=== PATIENT | male | born 1960 | race Caucasian/White ===

== ENCOUNTER 2021-02-13 20:22 | Outpatient (CLI) | payer OTHER | END 2021-02-13 20:23 | disposition critical access hospital (66) | LOC: EMS 20:22 | DX: R10.9 Unspecified abdominal pain (principal); R55 Syncope and collapse | CPT/HCPCS: A0425; A0427 ==

== ENCOUNTER 2021-02-13 21:01 | Emergency (ER) | payer OTHER ==
[2021-02-13] MEDS ORDERED: SODIUM CHLORIDE 0.9% 1,000 ML IV STA (21:25)
[2021-02-13] MEDS ORDERED: ASPIRIN CHEW 81 MG TABLET PO STA (21:25)
[2021-02-13 21:43] LABS: BASOPHILS # (AUTO) 0.1 10^3/uL (0.0-0.1); EOSINOPHILS # (AUTO) 0.1 10^3/uL (0.0-0.7); EOSINOPHILS % (AUTO) 1.2 %; HCT - HEMATOCRIT 37.2 % (42.0-52.0); HGB - HEMOGLOBIN 12.5 g/dL (14.0-18.0); LYMPHOCYTES # (AUTO) 1.5 10^3/uL (1.5-3.5); LYMPHOCYTES % (AUTO) 15.4 %; MEAN CORPUSCULAR HEMOGLOBIN 28.7 pg (27.0-31.0); MEAN CORPUSCULAR HGB CONC 33.6 g/dL (32.0-36.0); MEAN CORPUSCULAR VOLUME 85.5 fL (80.0-94.0); MEAN PLATELET VOLUME 9.5 fL (7.4-11.4); MONOCYTES # (AUTO) 0.7 10^3/uL (0.0-1.0); MONOCYTES % (AUTO) 6.9 %; NEUTROPHILS # (AUTO) 7.5 10^3/uL (1.5-6.6); NEUTROPHILS % (AUTO) 75.2 %; PLT - PLATELET COUNT 201 10^3/uL (130-450); RED BLOOD COUNT 4.35 10^6/uL (4.70-6.10); RED CELL DISTRIBUTION WIDTH 13.1 % (12.0-15.0); WHITE BLOOD COUNT 9.9 x10^3/uL (4.8-10.8)
--- NOTE | 2021-02-13 21:52 | ED Physician Documentation ---
PD HPI ABD PAIN - Stated complaint Stated Complaint: ABD PX - Chief complaint Chief Complaint: Abd Pain - History obtained from History obtained from: Patient - Additional information Additional information: 60yM, nonsmoker, with pmd htn, hld, p/w abd pain in LLQ, crampiing and sudden onset, moderate severity this evening a/w urge to defecate. patient then tried to go to bathroom but believes he passed out. he was incontinent of urine and stool during this episode. no tongue biting. on arrival to hospital denies nausea, fever, or feeling ill earlier in the day. denies cp, soa, dizziness. Review of Systems Ten Systems: 10 systems reviewed and negative Constitutional: denies: Fever, Chills Cardiac: denies: Chest pain / pressure Respiratory: denies: Dyspnea GI: reports: Abdominal Pain. denies: Nausea, Vomiting Neurologic: reports: Syncope PD PAST MEDICAL HISTORY - Present Medications Home Medications: Ambulatory Orders Medication Instructions Recorded Confirmed Lisinopril [Zestril] 02/13/21 Metoprolol Succinate [Kapspargo 02/13/21 Sprinkle] buPROPion [Wellbutrin Xl] 02/13/21 - Allergies Allergies/Adverse Reactions: Allergies Allergy/AdvReac Type Severity Reaction Status Date / Time No Known Drug Allergies Allergy Verified 02/13/21 21:08 PD ED PE NORMAL - Vitals Vital signs reviewed: Yes - General General: Alert and oriented X 3, No acute distress, Well developed/nourished - HEENT HEENT: Atraumatic, PERRL, EOMI - Neck Neck: Supple, no meningeal sign - Cardiac Cardiac: RRR - Respiratory Respiratory: No respiratory distress, Clear bilaterally - Abdomen Abdomen: Non tender, Non distended - Derm Derm: Normal color, Warm and dry - Extremities Extremities: No deformity - Neuro Neuro: Alert and oriented X 3, marble setter 2-12 intact, No motor deficit, No sensory deficit, Normal speech - Psych Psych: Normal mood, Normal affect Results - Vitals Vitals: Vital Signs - 24 hr 02/13/21 02/13/21 02/14/21 21:04 23:00 00:33 Temperature 36.7 C 36.9 C Heart Rate 52 L 76 64 Respiratory 18 12 13 Rate Blood Pressure 112/54 L 131/86 H 134/81 H O2 Saturation 96 98 98 Oxygen O2 Source Room air - EKG (time done) 6 Rate: Rate (enter#) (63) Rhythm: NSR [place]: Normal Intervals: Normal [place] QRS: Normal Ischemia: Normal ST segments 2256 Rate: Rate (enter#) (72) Rhythm: NSR [place]: Normal Intervals: Normal [place], Other (QRS 112) Ischemia: Normal ST segments, Other (no changes from prior) - Labs Labs: Laboratory Tests 02/13/21 02/13/21 02/13/21 21:32 21:32 21:32 WBC 9.9 RBC 4.35 L Hgb 12.5 L Hct 37.2 L MCV 85.5 MCH 28.7 MCHC 33.6 RDW 13.1 Plt Count 201 MPV 9.5 Neut # (Auto) 7.5 H Lymph # (Auto) 1.5 [place] # (Auto) 0.7 Eos # (Auto) 0.1 Baso # (Auto) 0.1 Absolute Nucleated RBC 0.00 Nucleated RBC % 0.0 Sodium 134 L Potassium 3.1 L Chloride 97 L Carbon Dioxide 29 Anion Gap 8.0 BUN 23 H Creatinine 0.9 Estimated GFR (MDRD) 86 L Glucose 121 H Calcium 8.9 Total Bilirubin 0.9 AST 21 ALT 17 Alkaline Phosphatase 52 Troponin I High Sens 7.3 Total Protein 6.3 L Albumin 4.0 Globulin 2.3 Albumin/Globulin Ratio 1.7 Lipase 41 02/13/21 23:36 WBC RBC Hgb Hct MCV MCH MCHC RDW Plt Count MPV Neut # (Auto) Lymph # (Auto) [place] # (Auto) Eos # (Auto) Baso # (Auto) Absolute Nucleated RBC Nucleated RBC % Sodium Potassium Chloride Carbon Dioxide Anion Gap BUN Creatinine Estimated GFR (MDRD) Glucose Calcium Total Bilirubin AST ALT Alkaline Phosphatase Troponin I High Sens 6.9 Total Protein Albumin Globulin Albumin/Globulin Ratio Lipase PD MEDICAL DECISION MAKING - ED course ED course: offered admission for observation, echo, possible stress test given moderate to severe coronary calcification in the setting of syncopal episode. patient declined, wanting to go home and f/u with pmd. strict return precautions discussed. Departure - Departure Disposition: Home, Self Care Clinical Impression: Syncope, Abdominal pain Condition: Stable Instructions: Abdominal Pain, Syncope Comments: You were seen in the emergency department for abdominal pain and a fainting episode. There were no emergent findings on your work-up but we did find that you have moderate to severe calcification of your coronary arteries, calcifications in your lung, and diverticulosis (no active infection) in your abdomen. You should follow up with your primary doctor for possible stress testing and/or echocardiography. return to the emergency department for any new or worsening symptoms or other concerns. Discharge Date/Time: 02/14/21 00:52
[2021-02-13 21:55] LABS: ALBUMIN/GLOBULIN RATIO 1.7 (1.0-2.2); BILIRUBIN,TOTAL 0.9 mg/dL (0.2-1.0); CALCIUM 8.9 mg/dL (8.5-10.3); CREATININE 0.9 mg/dL (0.6-1.2); POTASSIUM 3.1 mmol/L (3.5-5.0); TOTAL PROTEIN 6.3 g/dL (6.7-8.2)
--- NOTE | 2021-02-13 21:58 | XRAY Report ---
PROCEDURE: Chest 1 View X-Ray INDICATIONS: Chest Pain TECHNIQUE: One view of the chest was acquired. COMPARISON: None. FINDINGS: Surgical changes and devices: None. Lungs and pleura: No pleural effusions or pneumothorax. Lungs are clear. Mediastinum: Mediastinal contours appear normal. Heart size is normal. Bones and chest wall: No suspicious bony lesions. Overlying soft tissues appear unremarkable. IMPRESSION: 1. No acute cardiopulmonary disease. Reviewed by: Kev Louis MD on 02/13/2021 9:57 PM PDT Approved by: Kev Loius MD on 02/13/2021 9:57 PM PDT Station ID: [id number]
[2021-02-13] MEDS ORDERED: POTASSIUM CHLOR 10 MEQ/100 ML 10 MEQ/100 ML BAG IV ONE (22:20)
[2021-02-13] MEDS ORDERED: IOVERSOL 320 100 ML VIAL IVP ONE ×2 (22:59→23:51)
--- NOTE | 2021-02-14 00:04 | CT Report ---
PROCEDURE: ANGIO CHEST W/WO INDICATIONS: syncope, abdominal pain CONTRAST: IV CONTRAST: Optiray 320 ml: 100 PO CONTRAST: *NO PO CONTRAST TECHNIQUE: After the administration of intravenous contrast, 2 mm axial images were acquired from the pulmonary apices to the posterior costophrenic angles during the arterial phase. In addition, 1 mm lung kernel and 5 mm soft tissue kernel reconstructions were performed. 3-dimensional coronal oblique maximum int ensity projection (MIP) reformats, 8 mm axial MIP, and 5 mm coronal and sagittal MPR reformats were t hen performed through the thorax. For radiation dose reduction, the following was used: automated exp osure control, adjustment of mA and/or kV according to patient size. COMPARISON: None. Correlation made to chest x-ray performed same day FINDINGS: Image quality: Excellent. Aorta: The ascending aorta is normal caliber measuring 3.7 cm in AP diameter. No evidence of dissecti on. No significant atherosclerotic plaque. No hematoma or penetrating ulcer. Descending thoracic aort a is of normal caliber measuring 3.0 cm. Pulmonary arteries: Pulmonary arteries are normal in size, and demonstrate no large central intralum inal filling defects to suggest pulmonary embolism. Lungs and pleura: Small coarse calcification anteriorly in the left upper lobe, 3/99 measuring 3 mm. Lungs are otherwise clear. No pleural effusions or pneumothorax. Central and peripheral airways ar e patent. Mediastinum: Heart size is normal, without pericardial effusion. Moderate to heavy coronary artery c alcification. No mediastinal or hilar adenopathy. Great vessels demonstrate a normal branching patter n with trace atherosclerotic calcification. Esophagus is normal in caliber, without hiatal hernia. Bones and chest wall: No suspicious bony lesions. Degenerative anterior endplate spurring in the mi d to lower thoracic spine. Ribs and thoracic spine appear intact throughout. No axillary or supracla vicular adenopathy. The thyroid is normal in size and there are no incidental findings. IMPRESSION: 1. No evidence of acute aortic pathology. 2. No evidence of large central pulmonary embolus. 3. No pulmonary parenchymal disease. 4. Moderate to heavy coronary artery calcification. Reviewed by: Danni Covarrubias MD on 02/14/2021 12:03 AM PDT Approved by: Danni Covarrubias MD on 02/14/2021 12:03 AM PDT Station ID: [id number]
--- NOTE | 2021-02-14 00:14 | CT Report ---
PROCEDURE: ANGIO ABDOMEN/PELVIS W INDICATIONS: syncope, sudden abd pain CONTRAST: IV CONTRAST: Optiray 320 ml: 100 PO CONTRAST: *NO PO CONTRAST TECHNIQUE: After the administration of intravenous contrast, 2 and 5 mm sections acquired from the diaphragm to the iliac crests. 3-dimensional maximum intensity projection (MIP) coronal and sagittal reformats, a nd/or 3-dimensional volume rendering reformatting was then performed. For radiation dose reduction, the following was used: automated exposure control, adjustment of mA and/or kV according to patient size. COMPARISON: None FINDINGS: Image quality: Excellent. Extravascular tissues: Lung bases are clear. Heart size is normal. Liver and spleen are normal in size and enhancement. Gallbladder is decompressed. Biliary system is non dilated. Pancreas enhance s normally. No adrenal nodules. Kidneys are normal in size and enhancement, without hydronephrosis. Non-opacified bowel loops demonstrate normal wall thickness and caliber. There is moderate diverticular disease of the descending and sigmoid colon. No evidence of diverticul itis or perforation. No free fluid or air. Normal appendix. No retroperitoneal or mesenteric adenopa thy. No ventral hernias. No suspicious bony abnormalities. No vertebral body compression fractures . Severe degenerative disc height loss at L5-S1. Abdominal aorta: Normal caliber measuring 2.1 cm in maximal AP diameter. Mild mixed calcified and no ncalcified atherosclerotic plaque. No evidence of dissection or periaortic fluid collection. No peria ortic inflammation. Mesenteric arteries: There is a normal variant branching pattern with a prominent single celiac trun k giving rise to the superior mesenteric artery. The inferior mesenteric artery is patent. Hepatic, s plenic, left gastric and gastroduodenal arteries all appear patent. Renal arteries: Dual right and single left renal arteries. Mild atherosclerotic calcification at the left renal artery origin causing less than 50% stenosis. IMPRESSION: 1. No evidence of aortic dissection. 2. Normal variant mesenteric branching pattern as described. No evidence of significant arterial sten osis or aneurysm. 3. Descending and sigmoid colon diverticulosis without evidence of acute diverticulitis. Reviewed by: Danni Covarrubias MD on 02/14/2021 12:12 AM PDT Approved by: Danni Covarrubias MD on 02/14/2021 12:12 AM PDT Station ID: [id number]
[2021-02-14] MEDS ORDERED: ONDANSETRON 4 MG/2 ML VIAL IVP STA (00:26)
[2021-02-14 00:34] VITALS: BP 134/81
== END 2021-02-14 00:52 | disposition home or self-care (01) ==
LOC: ED 21:01
DX: R10.32 Left lower quadrant pain (principal); R55 Syncope and collapse; I25.10 Atherosclerotic heart disease of native coronary artery without angina pectoris; K57.30 Diverticulosis of large intestine without perforation or abscess without bleeding; J98.4 Other disorders of lung; I11.9 Hypertensive heart disease without heart failure
CPT/HCPCS: 36415; 71045; 71275; 74174; 80053; 83690; 84484; 85025; 93005; 96374; 99283; 99284; A9270; Q9967